=== PATIENT | female | born 2000 | race Caucasian/White ===

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

== ENCOUNTER → 2024-08-23 | Outpatient (CLI) | payer OTHER, SELFPAY | END | disposition home or self-care (01) | LOC: LABSPEC 17:57 | PROVIDERS: Referring Provider Physician Assistant; Visit Provider Physician Assistant | DX: R35.0 Frequency of micturition (principal) | CPT/HCPCS: 87086 ==

== ENCOUNTER → 2025-01-01 | Outpatient (CLI) | payer OTHER, SELFPAY ==
[2025-01-01 12:24] LABS: Hematocrit 36.9 % (37-47); Hemoglobin 12.3 g/dL (12.0-15.0); Immature Granulocytes Count 0.030 X10^3/uL (0.0-0.0); Mean Corp Hgb Conc 33.3 g/dL (32-36); Mean Corpuscular Volume 79.9 fL (81-99); Mean Platelet Vol. 10.3 fl (6.2-12.0); NRBC Flagged by Analyzer 0 % (0-5); Platelet Count 373 K/mm3 (150-450); RBC Distribution Width CV 14.7 % (11.6-14.6); RBC Distribution Width SD 42.3 fl (35.1-43.9); Red Blood Count 4.62 M/mm3 (4.2-5.4); White Blood Count 9.5 K/mm3 (4.4-11.0)
[2025-01-01 13:21] LABS: HIV Nonreactive (Nonreactive); Hepatitis B Surface Antigen Nonreactive (Nonreactive); Hepatitis C Antibody Nonreactive (Nonreactive); Syphilis Antibodies Nonreactive (Nonreactive)
[2025-01-02 21:07] LABS: Chlamydia By Nucleic Acid AMP Negative (Negative); Gonococcus By Nucleic Acid AMP Negative (Negative)
== END | disposition home or self-care (01) ==
PROVIDERS: Visit Provider Obstetrics & Gynecology
DX: Z12.4 Encounter for screening for malignant neoplasm of cervix (principal); O99.210 Obesity complicating pregnancy, unspecified trimester; Z3A.00 Weeks of gestation of pregnancy not specified
CPT/HCPCS: 36415; 83036; 85025; 86703; 86762; 86780; 86803; 86850; 86900; 86901; 87086; 87340; 87491; 87591; 88175; G0145

== ENCOUNTER → 2025-02-07 | Outpatient (CLI) | payer OTHER, SELFPAY ==
--- OUTSIDE RECORDS SUMMARY | 2025-02-07 14:42 | XMS RPT_ITS | CCD ---
Author Organization [facility] Care Team Providers Care Inpatient Pharmacist Name Role Phone Gerber Almeida Attending Provider Gerber Almeida Referring Provider Gerber Almeida Attending Unavailable Gerber Almeida Referring Unavailable Gerber Almeida Attending Unavailable Medications Current Medications Medication Drug Class(es) Dates Sig (Normalized) Sig (Original) [place] (Nk) (2 sources) Start: 08-23-2024 [place] (Nk) A ctive August 23, 2024 12:00am Completed/Discontinued Medications Medication Drug Class(es) Dates Sig (Normalized) Sig (Original) azithromycin 250 mg oral tablet (2 sources) Macrolide Antimicrobial Start: 08-22-2023 End: 08-23-2024 Azithromycin (Zithromax Z-Pj) 250 mg tablet Discontinued 0 PO .COMPLEX 6 0 August 22, 2023 12:00am August 23, 2024 11:38am For 250 mg dose pack: take 500 mg today (day 1), then 250 mg for 4 days (days 2-5) PO predniSONE 10 mg oral tablet (2 sources) Start: 08-22-2023 End: 09-06-2023 Prednisone 10 mg tablet Discontinued 10 mg PO .COMPLEX 35 15 0 August 22, 2023 12:00am September 05, 2023 12:00am September 06, 2023 12:03am 10 mg orally; 40mg x5 days, 20mg x5 days, 10mg x5 days Problems Problem Classification Problem Date Documented Da te Episodic/Chronic Cardiac dysrhythmias (2 sources) Tachycardia; Translations: [Tachycardia, unspecified] 08-22-2023 Episodic Genitourinary symptoms and ill-defined conditions (1 source) Frequency of micturition; Translations: [Frequency of micturition] Onset: 08-28-2024 Episodic Other upper respiratory infections (2 sources) Upper respiratory infection; Translations: [Acute upper respiratory infection, unspecified] 08-22-2023 Episodic Unclassified (2 sources) Patient condition finding 08-22-2023 Results Test Name Value Interpretation Reference Range Facility Urine Cultureon 08-24-2024 [facility] Culture exhibits no growth. Normal [facility] Comment on above: Performed By: #### M 100.2200 #### [facility] [address] [place], [place], [address] Laboratory - Chemistry and C hemistry - challengeOrdered By: Gerber Katz on 08-23-2024 HCG ( test) Ql (U) Negative [facility] Bilirubin Ql (U) Negative [facility] Glucose Ql (U) Negative [facility] Ketones Ql (U) Negative [facility] pH (U) 5.0 [pH] [facility] Specific gravity (U) [Rel density] 1.[address] [facility] Urobilinogen (U) [Mass/Vol] 0.2401774 mg/dL [facility] - Hematology and Cell countsOrdered By: Gerber Katz on 08-23-2024 Hemoglobin Ql (U) Negative [facility] - Specimen inform ationOrdered By: Gerber Katz on 08-23-2024 Clarity (U) Clear [facility] Color (U) Colorless [facility] - UrinalysisOrder ed By: Gerber Katz on 08-23-2024 Nitrite Ql (U) Negative [facility] Protein Ql (U) Negative [facility] No Panel InformationOrdered By: Gerber Katz on 08-23-[address] [facility] Urine Non-Hemolyzed Blood Negative [facility] Urgent Care Visit Reporton 0 08-23-2024 Urgent Care Visit Report [facility] [address], [address] [place], [place] [address] OFFICE VISIT Date of Service: 08/23/24 MR#: [id number] Acct: [id number] Name: DIANA POSEY Rep #: [id number] : 2000 Provider: MELLISSA Santoyo Age/Sex: 24/F Location: [facility] Status: Signed Intake Vital Signs 08/22/23 12:23 Height 5 ft 6.5 in BP 128/80 H Position Sitting Respiration 20 H Pulse 105 H Temp 98.2 F Temp Source Oral Pulse Oximetry (%) 100 Oxygen Delivery Method room air Intake Visit Reasons: KIDNEY PAIN/CONCERN FOR UTI Chief Complaint: UTI Accompanied by: Self Allergies No Known Allergies Allergy (Verified 08/23/24 11:38) Medications ???Medication ???Instructions ???Recorded ???Confirmed ???Type NK 08/23/24 08/23/24 History Nurse's Note: Patient here for concerns for UTI. Patient states the end of last week she started noticing kidney pain and was having to frequency with urination. Patient also states she had a discharge last week that was yellow and she never had that before. [facility] Medical History (Updated 08/22/23 @ 12:33 by Javed Fraga DRY JANITOR, DRY JANITOR-C) No active medical problems Surgical History (Updated 08/22/23 @ 12:25 by Effie Carrillo) No significant past surgical history Social History (Updated 08/22/23 @ 12:25 by Effie Carrillo) Smoking Status: Never smoker alcohol intake: never substance use type: does not use HPI HPI Chief Complaint: UTI Details: DIANA POSEY, is a 24 F who presents to the office today for History of Present Illness The patient is a 24-year-old female presenting with symptoms suggestive of a urinary tract infection. She reports increased urinary frequency and back pain since last Wednesday, with no fever or chills. Her urine color fluctuates between clear yellow and dark, and she has increased her fluid intake recently. The patient denies any prior urinary issues and mentions a possible , which is under evaluation. Attestation: Documentation on this patient encounter was supported using ambient scribe technology/ voice AI technology. The patient consented to recording for the purpose of documenting the encounter. Provider reviewed content of the generated note prior to signature. Review of Systems - General: Denies fever, chills - Genitourinary: Reports increased urinary frequency, denies changes in urine color or character - Musculoskeletal: Reports back pain - Gastrointestinal: Denies nausea, vomiting, or significant abdominal pain Physical Exam - Cardiovascular: Heart sounds normal, no murmurs, rubs, or gallops - Respiratory: Lungs clear to auscultation bilaterally - Abdominal: No tenderness to palpation - Musculoskeletal: No pain on palpation over the costovertebral angle Results - Urinalysis: No white blood cells or nitrites detected, urine appears clear Assessment and Plan The patient is a 24-year-old female with a history of increased fluid intake presenting with symptoms suggestive of a urinary tract infection, including increased urinary frequency and back pain. Urinalysis shows no signs of infection, suggesting that increased fluid intake may be contributing to her symptoms. The possibility of is being considered and evaluated. 1. Interstitial cystitis (chronic) without hematuria N30.10 The patient is advised to monitor symptoms and follow up with her family doctor if symptoms persist. Increased fluid intake is noted as a potential cause of urinary frequency, and symptomatic relief with ibuprofen or acetaminophen is recommended for discomfort. 2. Dorsalgia, unspecified M54.9 The patient is advised to monitor back pain and seek further evaluation if symptoms worsen or persist. 3. Encounter for test, result unknown Z32.00 A test is being conducted to confirm the possibility of ; test was negative. Patient Instructions - Monitor symptoms and follow up with your family doctor if they persist. - Use ibuprofen or acetaminophen for discomfort. - Await results of the test. Results POC Urine Office , Urine Negative Last Edit by Pita De MA on 08/23/24 11:41 POC Urinalysis Dip (Clinic) Office Urine Color Colorless Last Edit by Pita De MA on 08/23/24 11:41 Office Urine Clarity Clear Last Edit by Pita De MA on 08/23/24 11:41 Office Urine Glucose Negative Last Edit by Pita De MA on 08/23/24 11:41 Office Urine Ketones Negative Last Edit by Pita De MA on 08/23/24 11:41 Off Ur Spec [place] 1.005 Last Edit by Pita De MA on 08/23/24 11:41 Office Urine pH 5.0 Last Edit by Pita De MA on 08/23/24 11:41 Office Urine Bilirubin Negative Last Edit by Pita De MA on 08/23/24 11:41 Of (more content not included)... Normal [facility] Urine cultureOrdered By: Mayur Katz on 08-23-2024 Bacteria identified Cx Nom (U) Culture exhibits no growth. [facility] Vital Signs Date Time Vital Sign Value Performing Clinician Wanda oliveira 08-22-2023 12:23-0400 Body temperature 98.2 [degF] Gerber MALLOY Work Phone: [facility] 08-22-2023 12:23-0400 Diastolic blood pressure 80 mm[Hg] Gerber MALLOY Work Phone: [facility] 08-22-2023 12:23-0400 Heart rate 105 /min Gerber MALLOY Work Phone: [facility] 08-22-2023 12:23-0400 Respiratory rate 20 /min Gerber MALLOY Work Phone: [facility] 08-22-2023 12:23-0400 SaO2% (BldA) [Mass fraction] 100 % Gerber MALLOY Work Phone: [facility] 08-22-2023 12:23-0400 Systolic blood pressure 128 mm[Hg] Gerber MALLOY Work Phone: [facility] Encounters Encounter Date Encounter Type Care Provider Facility Start: 08-23-2024 End: 08-23-2024 ambulatory Gerber MALLOY Work Phone: -Laboratory Specimen Start: 08-23-2024 End: 08-23-2024 Patient encounter procedure Gerber MALLOY -Laboratory Specimen Work Phone: Start: 08-23-2024 End: 08-23-2024 Patient encounter procedure Gerber MALLOY [facility] Work Phone: Start: 08-23-2024 End: 08-23-2024 ambulatory Gerber MALLOY [facility] Start: 08-23-2024 End: 08-23-2024 ambulatory Gerber MALLOY Facility:[facility] Procedures Date Procedure Procedure Detail Performing Clinician Start: 08-23-2024 Urine culture Gerber MALLOY Work Phone: Plan of Treatment Date Care Activity Detail Author [facility] Payers Date Payer Category Payer Self-pay 2024 Unknown [id number] 2012 [employer] [id number] [employer] [id number] Unknown [id number] Unknown [id number] Social History Date Type Detail Facility Start: 08-22-2023 Tobacco smoking stat us SCIS Never smoked tobacco (finding) [facility] Start: 2000 Sex Assigned At Female [facility] Evaluation note Note Date & Type Note Facility Evaluation note No assessment information availa chris [facility] Work Phone: Reason for referral (narrative) Note Date & Type Note Facility Reason for referral (narrative) No reason for referral information available [facility] [employer] Work Phone: Chief Complaint and Reason for Visit Chief Complaint Admit Date KIDNEY PAIN/CONCERN FOR UTI August 23 025 11:08am Summary Purpose Family History No Family History Records Found Advance Directives No Advanced Directives Records Found Additional Source Comments Care Teams (unrecognized sec tion and content) Team Status: Active Member Role/Relationship Status Dates Brenda Baires DO Family Provider Active Team Status: Inactive Member Role/Relationship Status Dates MELLISSA Zheng Attending Provider Active Start: August 23, 2024 End: August 23, 2024 Team Status: Inactive Member Role/Relationship Status Dates MELLISSA Zheng Attending Provider Active Start: August 23, 2024 End: August 23, 2024 MELLISSA Zheng Referring Provider Active Start: August 23, 2024 End: August 23, 2024 Goals (unrecognized section and content) Goals may be documented in a n alternate sectionGoals may be documented in an alternate section INFORMATION SOURCE (unrecogn ized section and content) DATE CREATED AUTHOR 08/30/2024 [facility] FOR RECORDS PERTAINING TO PATIENTS WHO ARE OR HAVE BEEN ENROLLED IN A CHEMICAL DEPENDENCY/SUBSTANCEABUSE PROGRAM, SOME INFORMATION MAY BE OMITTED. This clinical summary was aggregated from multiple sources. Caution should be exercised in using it in the provision of clinical care. This summary normalizes information from multiple sources, and as a consequence, information in this document may materially change the coding, format and clinical context of patient data. In addition, data may be omitted in some cases. CLINICAL DECISIONS SHOULD BE BASED ON THE PRIMARY CLINICAL RECORDS. [facility] [employer] [facility]. provides no warranty or guarantee of the accuracy or completeness of information in this document.
== END | disposition home or self-care (01) ==
LOC: LABSPEC 14:32
PROVIDERS: Visit Provider Nurse Practitioner Women's Health
DX: O99.891 Other specified diseases and conditions complicating pregnancy (principal); R30.0 Dysuria; Z3A.00 Weeks of gestation of pregnancy not specified
CPT/HCPCS: 87086; 87088